=== PATIENT | male | born 1940 | race Caucasian/White ===

== ENCOUNTER 2023-04-03 07:44 | Inpatient (IN) | payer MEDICARE, BC, SELFPAY ==
--- NOTE | 2023-04-03 07:45 | RT.EKG_ITS ---
APPROVED REPORT Exam: Resting ECG Reason for Exam: CHEST PAIN Patient Location: E HR:80 bpm ECG Measurements Heart Rate 80 AXIS IN 160 P 43 QRSd 86 QRS 53 QT 343 T 137 QTc 396 Conclusion Sinus rhythm...normal P axis, V-rate 60- 99 Probable left atrial enlargement...P >50mS, <-0.10mV V1 Abnrm T, consider ischemia, anterolateral lds...T <-0.20mV, I aVL V2-V6 T wave inversions I, L, V3-V6 no previous avai
[2023-04-03 07:48] VITALS: BP 126/53; PULSE 80; RESP 17; TEMP 36.8; O2SAT 96
[2023-04-03 07:58] VITALS: RESP 17
--- NOTE | 2023-04-03 08:18 | DI.CT_ITS ---
Exam(s) CT THORAX ABD/PEL CTA EXAM: CT THORAX ABD/PEL CTA CLINICAL HISTORY: rule out dissection/ AAA. TECHNIQUE: Imaging Protocol: Axial CT angiography was performed with multi-slice acquisition and mu lti-planar and/or 3D reconstructions. CONTRAST MATERIAL: Intravenous: Omnipaque 350 Contrast volume:125 ml COMPARISON: No exams were available for comparison FINDINGS: CHEST: Pulmonary Arteries: No evidence of filling defect to suggest pulmonary emboli. Tracheobronchial tree: Patent where visualized. Mediastinum and Kaylyn: No dominant adenopathy or fluid collection. Pulmonary parenchyma: No consolidation or dominant measurable mass. Pleura: No effusion or pneumothorax. Heart: Mildly enlarged. Status post CABG. Coronary artery calcifications. Aorta: Thoracic aorta non-dilated. Minimal calcifications. Bones: Sternal wires. Tubes, Catheters, and Lines: ABDOMEN: Liver: Normal density. No measurable mass. Portal, Superior Mesenteric, and Splenic Veins: Unremarkable. Gallbladder and Biliary Tract: Status post cholecystectomy. Distal common bile duct stent extending into duodenum. No biliary dilatation. Pancreas: Normal density, no abnormal calcifications or inflammatory process. Spleen: Normal. Adrenals: No masses seen. Kidneys: Normal size, contour and axis. No radiodense stones or obstructive uropathy. No masses seen. Abdominal Aorta and branch vessels: Abdominal aorta non-dilated. Minimal atherosclerotic changes. N o significant stenosis involving the celiac axis, SMA, BRITTNEY or renal arteries. Iliac and femoral cindy luca show scattered plaque but no significant stenosis or aneurysm. Bowel: Large quantity of stool. Mild diverticulosis. No obstruction or bowel wall thickening. Appen allen is unremarkable. Peritoneal Cavity: No ascites, collection or mesenteric inflammatory response. Lymph Nodes: Within normal limits. Bones: Unremarkable. Soft Tissues: Unremarkable. PELVIS: Bladder: Symmetric distention, no gross wall thickening. Reproductive Organs: Unremarkable as visualized. Lymph Nodes: Within normal limits. Bones: Within normal limits. IMPRESSION: 1. No evidence of pulmonary embolism. No evidence of aortic aneurysm or dissection. Atherosclerotic changes in the aorta and branch vessels without evidence of significant stenosis or aneurysm. 2. No acute abdominal or pelvic process. RADIATION DOSE DELIVERED: 1,064.65mGy.cm Total DLP DATA REPOSITORY: All CT scans at this facility are submitted to the National Radiology Data Registry (NRDR) Dose Index Registry (DIR) with the [employer] (A[employer]). RADIATION OPTIMIZATION: All CT scans at this facility use at least one of these dose optimization te chniques: automated exposure control; mA and/or kV adjustment per patient size (includes targeted exa ms where dose is matched to clinical indication); or iterative reconstruction.
--- NOTE | 2023-04-03 08:25 | W.ED.GENAD ---
Discharge Plan Disposition Patient Disposition: Admit to [facility] Discharge Details Chief Complaint: Chest Pain Clinical Impression: Hepatitis, Post-operative complication, Abnormal ECG Primary Care Provider: Anh,Local ED Provider: Becca Barajas Home Meds and New Rx's Prescriptions: No Action melatonin 10 mg capsule 10 mg PO HS PRN methylprednisolone 4 mg tablets,dose pack 4 mg PO DAILY Qty: 21 0RF permethrin 5 % cream 1 applic topical Q14D Qty: 60 0RF Rx Instructions: apply second treatment 14 days after first treatment if live lice remain atorvastatin [Lipitor] 80 MG tablet 80 mg PO QPM aspirin [Aspir-81] 81 MG tablet,delayed release (DR/EC) 81 mg PO QAM tamsulosin 0.4 MG capsule 0.4 mg PO HS lisinopril 5 MG tablet 5 mg PO QAM Discharge Data Discharge Date/Time-TO BE ENTERED AT DEPARTURE: 04/03/23 13:42 Discharge Physician: Becca Barajas Medical Decision Making This is a 82-year-old male with a history of coronary artery disease and 5 vessel bypass who had a clean cardiac cath 3 years ago in [place] prior to an orthopedic procedure on his shoulder. He presents today with epigastric pain rating to the back. I am concerned about a AAA and/or dissection. Other considerations are pancreatitis, diverticulitis, peptic ulcer disease, gastritis, colitis although he has not had any diarrhea or vomiting. I do not hear a bruit and there were no embolic lesions in the abdomen but we will obtain a CT of the chest abdomen and pelvis. I will write for IV fluids. He is not currently experiencing pain and we will address that if his pain returns. He is currently hemodynamically stable. We will also check blood work and send a type and screen. I have already reviewed his EKG and he has some T wave inversions which are likely old but we do not have an old one for comparison Lab Data Lab results reviewed: Yes I reviewed the patient's lab results. ECG Data Attestation: I personally reviewed and interpreted this ECG (s) as follows: Prior ECG tracings: available for review Interpretation: This patient has diffuse T wave inversions but no ST elevation. We have no previous available for comparison HPI General Date/Time Provider Initiated Documentation: 04/03/23 07:59. Information obtained by: patient and family (). HPI Narrative: Time seen was 8 AM in bed 1. The patient is a 82-year-old male who resides in [place] and is visiting his daughter who is a pharmacist here at [facility]. He has a history of bypass grafting x5 in 1998. 3 years ago prior to shoulder surgery he had a cardiac catheterization in [place] which his tells me demonstrated clean coronary arteries. He presents today with abdominal pain which radiates to his back which was severe in intensity and lasted hours. He states that the pain began in the epigastric region and radiated around his abdomen and directly to his back. It began last night after dinner. He stated that drinking milk helps slightly, but he did vomit this morning. He probably vomited his lisinopril. Currently he is pain-free. He states the pain is similar to his previous anginal equivalent prior to his bypass in 1998. He did not take any medications for his pain other than a gram of acetaminophen. He tells me that he is currently pain-free and denies any other aggravating or alleviating factors. He denies any blood in the stool. He denies heavy alcohol use. He denies any history of pancreatitis. He denies any diarrhea or sick contacts. He also complained of feeling chills but his states she took his temperature and he was afebrile. Related Data Home Medications Medication Instructions Recorded Confirmed aspirin 81 mg tablet,delayed 81 mg PO QAM 04/30/13 04/03/23 release (Aspir-) atorvastatin 80 mg tablet (Lipitor) 80 mg PO QPM 04/30/13 04/03/23 lisinopril 5 mg tablet 5 mg PO QAM 04/30/13 04/03/23 tamsulosin 0.4 mg capsule 0.4 mg PO HS 04/30/13 04/03/23 melatonin 10 mg capsule 10 mg PO HS PRN 03/25/23 04/03/23 methylprednisolone 4 mg tablets in 4 mg PO DAILY #21 dose pk 03/25/23 04/03/23 a dose pack permethrin 5 % topical cream 1 applic topical Q14D 2 doses #60 04/02/23 04/03/23 grams Previous Rx's Medication Instructions Recorded methylprednisolone 4 mg tablets in 4 mg PO DAILY #21 dose pk 03/25/23 a dose pack permethrin 5 % topical cream 1 applic topical Q14D 2 doses #60 04/02/23 grams Allergies Allergy/AdvReac Type Severity Reaction Status Date / Time No Known Allergies Allergy Unverified 04/02/23 12:00 General Stated Complaint: Chest Pain MORENA: 3 Review of Systems Constitutional Constitutional: Reports as per HPI and Denies fever(s) Comments: No dizziness Eyes Eyes: Reports as per HPI ENT Ears, Nose, Mouth, and Throat: Denies dysphagia Gastrointestinal Gastrointestinal: Reports as per HPI, Reports abdominal pain, Denies melena, Denies hematochezia, Denies coffee ground emesis and Denies dysphagia PFS All Active Problems (Updated 04/03/23 @ 13:42 by Becca Barajas MD) Hepatitis (Acute) Post-operative complication (Acute) Abnormal ECG (Acute) Social History Smoking/Tobacco Use Status: Never Smoking risk assessment performed?: Yes Alcohol Intake: current Alcohol Intake frequency: holidays/special occasions only Drug use: Never Exam Const General: cooperative, healthy appearing, comfortable, no acute distress, well developed, well groomed and well hydrated Nutritional Appearance: average body habitus and well nourished Orientation: alert, awake and oriented x3 HENMT Head: normal to inspection, normocephalic and atraumatic Ears: hearing grossly normal bilaterally and external ears normal General nose exam: external nose normal and no nasal discharge Face and sinus: normal facial exam Mouth: moist mucous membranes and other (Normal phonation) Eyes General: appearance normal, both eyes and all related structures Conjunctivae: other (Conjunctiva are slightly pale) Pupils: PERRL EOM: EOM intact bilaterally Other: The patient has had bilateral lens implants Neck Neck: normal visual inspection, full ROM, no meningeal signs and trachea midline Carotids: normal carotid upstroke and no bruits Chest Other: The patient has a well-healed sternotomy scar. No chest wall tenderness. Symmetric expansion Resp Effort & Inspection: normal respiratory effort and able to speak in complete sentences Auscultation: clear to auscultation bilaterally and abnormal I/E ratio Cardio Jugular venous pressure: no JVD Rate: regular rate Rhythm: regular rhythm Heart Sounds: S1 normal and S2 normal Bruits: no abdominal aortic bruits and no carotid bruits Pulses: dorsalis pedis present Other: No embolic lesions GI Inspection: normal to inspection and non-distended Palpation: soft, no hepatosplenomegaly, no aortic enlargement, no hepatosplenomegaly and nontender Auscultation: normal bowel sounds Back/Spine/Pelvis Back: no CVA tenderness Cervical Spine: normal cervical lordosis Thoracic/Lumbar Spine: thoracic and lumbar spine normal to inspection Skin General skin exam: no rashes or lesions noted, turgor normal, no petechiae and no purpura Rashes: no rashes Trauma: no lacerations or abrasions Neuro General: patient alert, patient awake, patient oriented x3, no meningeal signs, no focal motor deficits and CN's II-XI intact bilaterally Cranial Nerves: CN's II-XI intact bilaterally Cognition: normal cognition Speech: speech normal Gait: normal gait Motor: muscle tone normal throughout Sensory Exam: no sensory deficits noted Extrem General: full ROM, capillary refill normal and normal exam except as noted Other: The patient has a surgical scar of the right ankle and well-healed surgical scar from a saphenous vein graft. No cyanosis. Mild peripheral edema no Homans or cords Psych Appearance: grossly normal Affect: normal affect Attitude: cooperative Insight: insight good Judgment: judgment good Other: The patient appears to have capacity make medical decisions. Course The patient has inverted T waves on his EKG and no previous available for comparison. He has had previous EKGs in [place]. His is attempting to recall the name of the hospital where he has been admitted previously so we may obtain previous EKG for comparison. Reevaluation(s) Time: 08:00 Time: 08:41 Reevaluation #2: The patient states that he has also been [place]. He states this is a new complaint. Time: 11:28 Additional Reevaluation(s): I have reviewed the CT findings and the patient has a biliary stent in the distal portion of the common bile duct with most of the stent in the duodenum. The patient states he was not aware of his stent but did have a cholecystectomy 6 years ago in [place]. I will consult general surgery. Patient feels improved and is asking to eat. Consultations Consultation #1: Dr. Tirado general surgery General surgery Consultation #2: Dr. Moura ([facility] [place]) he recommended that the patient be admitted and started on antibiotics if he developed a leukocytosis or fever. They will attempt to arrange for ERCP on Wednesday the or Wednesday the . Time: 12:50 Consultation #3: Hospitalist Additional Consultation(s): Agrees to admit Vital Signs Vital signs: Vital Signs Temperature 36.8 C 04/03/23 07:48 Pulse 80 04/03/23 07:48 Respiratory Rate 17 04/03/23 07:48 Blood Pressure 126/53 L 04/03/23 07:48 Pulse Oximetry 96 04/03/23 07:48 Temperature 36.8 C 04/03/23 07:48 Temperature Source Oral 04/03/23 07:48 Pulse 80 04/03/23 07:48 Respiratory Rate 17 04/03/23 07:58 Respiratory Effort Normal, Non-Labored 04/03/23 07:58 Respiratory Depth Normal 04/03/23 07:58 Respiratory Pattern Normal 04/03/23 07:58 Blood Pressure 126/53 L 04/03/23 07:48 Blood Pressure Position Supine 04/03/23 07:48 Pulse Oximetry 96 04/03/23 07:48 Oxygen Delivery Method Room Air 04/03/23 07:48 Oxygen Flow Rate 0 04/03/23 07:48 Critical Care Time Critical Care Time Critical Care Time: Yes Total Critical Care Time: 36
[2023-04-03 08:33] LABS: Abs Immature Grans 0.03 10^3/uL (0.0-0.06); Absolute Basophil Count 0.03 10^3/uL (0.0-0.2); Absolute Eosinophil Count 0.01 10^3/uL (0.0-0.7); Absolute Lymphocyte Count 0.15 10^3/uL (1.2-3.4); Absolute Monocyte Count 0.49 10^3/uL (0.1-0.8); Absolute Neutrophil Count 7.79 10^3/uL (1.2-6.7); Basophils % 0.4; Eosinophils % 0.1; HCT 42.3 % (40.0-50.0); HGB 14.1 g/dL (13.5-17.5); Immature Grans % 0.4; Lymphocytes % 1.8; MCH 33.7 pg (27.0-33.0); MCHC 33.3 % (32.0-36.0); MCV 101 fL (80-95); MPV 12.2 fL (8.0-11.0); Monocytes % 5.8; Neutrophils % 91.5; Platelet Count 102 10^3/uL (130-400); RBC 4.19 10^6/uL (4.36-5.78); RDW 11.9 % (11.8-14.1); RDW-SD 44.5 fL
[2023-04-03 08:56] LABS: ALT 538 U/L (16-63); AST 790 U/L (15-37); Albumin 3.2 g/dL (3.4-5.0); Alkaline Phosphatase 271 U/L (46-116); Anion Gap 10.4 mmol/L (3-11); BUN 17 mg/dL (7-18); Bilirubin, Total 4.2 mg/dL (0.2-1.0); CO2 24.6 mmol/L (21.0-32.0); CREATININE 1.4 mg/dL (0.70-1.30); Chloride 104 mmol/L (98-107); Estimated GFR 49.87 (mL/min/1.73m2); Glucose 177 mg/dL (74-106); Lipase 16 U/L (16-77); Magnesium 1.8 mg/dL (1.8-2.4); NT-proBNP 481 pg/mL (<300); Potassium 4.2 mmol/L (3.5-5.1); Sodium 139 mmol/L (136-145); Total Protein 6.8 g/dL (6.4-8.2); Troponin I < 50 ng/L (<or=60)
[2023-04-03] MEDS: Aspirin 81 MG CHEW 324 MG CH (09:01)
[2023-04-03 09:04] LABS: INR 1.1 (0.9-1.1); PTT Activated 21.2 sec (21.5-31.9); Prothrombin Time 11.5 sec (9.3-11.0)
[2023-04-03] MEDS: Normal Saline - Diluent 50 ML VIAL IJ (10:05)
[2023-04-03] MEDS: Omnipaque 350 MG/ML 100 ML BTL IJ (10:05)
--- NOTE | 2023-04-03 10:40 | DI.VRAD_ITS ---
PROCEDURE INFORMATION: Exam: CTA Chest With Contrast CTA Abdomen and Pelvis With Contrast Exam date and time: 04/03/2023 9:55 AM Age: 82 years old Clinical indication: Other: Midline abdomen pain; Abdominal pain; Acute TECHNIQUE: Imaging protocol: Computed tomographic angiography of the chest with contrast. Exam focused on the arteries. Computed tomographic angiography of the abdomen and pelvis with contrast. Exam focused on the arteries. 3D rendering (Not supervised by radiologist): MIP and/or 3D reconstructed images were created by the technologist. COMPARISON: No relevant prior studies available. FINDINGS: VASCULATURE: Pulmonary arteries: Normal. No pulmonary emboli. Aorta: No aortic aneurysm. No aortic dissection. Celiac trunk and mesenteric arteries: No occlusion or significant stenosis. Renal arteries: No occlusion or significant stenosis. Right iliac arteries: No occlusion or significant stenosis. Left iliac arteries: No occlusion or significant stenosis. CHEST: Lungs: Unremarkable. No consolidation. No masses. Pleural spaces: Unremarkable. No pneumothorax. No pleural effusion. Heart: The heart is borderline enlarged and has a biventricular configuration. There are coronary artery calcifications. There is a sternotomy for coronary artery bypass graft surgery. There is no pericardial effusion. ABDOMEN AND PELVIS: Liver: No mass. Gallbladder and bile ducts: The gallbladder has been removed No ductal dilation. There is a biliary stent in the distal portion of the common bile duct with most of the stent in the duodenum. Pancreas: Unremarkable. No mass. No ductal dilation. Spleen: Unremarkable. No splenomegaly. Adrenal glands: Unremarkable. No mass. Kidneys and ureters: Unremarkable. No solid mass. No hydronephrosis. Stomach and bowel: Unremarkable. No obstruction. No mucosal thickening. Appendix: No evidence of appendicitis. Intraperitoneal space: Unremarkable. No free air. No significant fluid collection. Urinary bladder: Unremarkable. No mass. Reproductive: Unremarkable as visualized. Lymph nodes: Unremarkable. No enlarged lymph nodes. Bones/joints: The osseous structures are unremarkable. Soft tissues: Unremarkable. Other findings: Peripheral vascular has a small amount of plaque without stenosis. IMPRESSION: 1. The peripheral vasculature has a small amount of plaque but no evidence of stenosis or occlusion. Evidence of coronary artery bypass graft surgery. 2. Biliary stent in the distal portion of the common bile most of the stent in the duodenum. Dictated and Authenticated by: Vinay Yeung MD. Ordering:VANE Hudson MD
[2023-04-03] MEDS: Lactated Ringers 1,000 ML 150 ML IV ×2 (11:43→17:33)
[2023-04-03 11:48] LABS: Troponin I < 50 ng/L (<or=60)
[2023-04-03 15:14] VITALS: BP 118/54; PULSE 67; RESP 16; TEMP 37; O2SAT 98
[2023-04-03 15:14] LABS: Troponin I < 50 ng/L (<or=60)
[2023-04-03] MEDS: Heparin 5,000 UNITS/ML VIAL 5000 UNITS SC (15:55)
--- NOTE | 2023-04-03 16:59 | HPE_ITS ---
Date of service: 04/03/23 Time of Service: 16:59 Assessment and Plan Assessment and plan (1) Displacement of biliary stent: Status: Acute Assessment and plan: CBD stented appx 5 years ago d/t retained stone. Now dislodged. Will attempt to find GI that would accept for either a down and back for removal of the stent or transfer. Now w/o pain. PRN dilaudid if needed. (2) Coronary artery disease: Status: Chronic Assessment and plan: Troponin negative. T-wave inversions noted but likely are not new. Cont ASA and atorvastatin. Not on a BB. (3) Discharge planning issues: Status: Acute Assessment and plan: Will begin process of finding GI for ERCP and stent removal. History of Present Illness History of Present Illness Chief Complaint: Abd pain Narrative: This is an 82 yo male with a PMH of gallstone pancreatitis with a retained stone; s/p CBD stent, CAD s/p CABG grafting x5 in 1998. He is currently in [place] with his staying with his daughter for the summer. He presented with abd pain radiating into the back that began the evening before presentation after eating. The pain was epigastric and lasted for several hours. + emesis the m orning of admission. He presented pain-free. The pain was similar to that he experienced prior to his bypass surgery. He took 1 gram acetaminophen for the abd pain. He endorsed having experienced chills. No diarrhea, fever. In the ED he was afebrile with a normal WBC count and hgb. Normal magnolia ctrolytes. Creatinine of 1.4. Glucose 177. Troponin negative x3. CT C/A/P: Biliary stent in the distal portion of the common bile duct; most of the stent in the duodenum. Review of Systems All systems reviewed & are unremarkable except as noted in HPI and below PFSH All Active Problems (Updated 04/03/23 @ 17:28 by Dylan Anderson MD) Discharge planning issues (Acute) Coronary artery disease (Chronic) Displacement of biliary stent (Acute) Hepatitis (Acute) Post-operative complication (Acute) Abnormal ECG (Acute) Social History Smoking/Tobacco Use Status: Never Smoking risk assessment performed?: Yes Alcohol Intake: current Alcohol Intake frequency: holidays/special occasions only Drug use: Never Housing: house Meds Allergies and Home Medications Allergies Allergy/AdvReac Type Severity Reaction Status Date / Time No Known Allergies Allergy Unverified 04/02/23 12:00 Home Medications Medication Instructions Recorded Confirmed Type aspirin 81 mg tablet,delayed 81 mg PO QAM 04/30/13 04/03/23 History release (Aspir-) atorvastatin 80 mg tablet (Lipitor) 80 mg PO QPM 04/30/13 04/03/23 History lisinopril 5 mg tablet 5 mg PO QAM 04/30/13 04/03/23 History tamsulosin 0.4 mg capsule 0.4 mg PO HS 04/30/13 04/03/23 History melatonin 10 mg capsule 10 mg PO HS PRN 03/25/23 04/03/23 History methylprednisolone 4 mg tablets in 4 mg PO DAILY #21 dose pk 03/25/23 04/03/23 Rx a dose pack permethrin 5 % topical cream 1 applic topical Q14D 2 doses #60 04/02/23 04/03/23 Rx grams Exam Const General: cooperative, healthy appearing, no acute distress, well groomed and well hydrated Nutritional Appearance: average body habitus and well nourished Orientation: alert, awake and oriented x3 HENMT Head: normal to inspection and normocephalic Ears: hearing grossly normal bilaterally and external ears normal Face and sinus: normal facial exam Mouth: moist mucous membranes Eyes General: appearance normal, both eyes and all related structures Sclera: sclerae normal Other: The patient has had bilateral lens implants Neck Neck: normal visual inspection and full ROM Chest Other: The patient has a well-healed sternotomy scar. No chest wall tenderness. Symmetric expansion Resp Effort & Inspection: normal respiratory effort and able to speak in complete sentences Cardio Jugular venous pressure: no JVD Rate: regular rate Rhythm: regular rhythm Heart Sounds: S1 normal and S2 normal Other: No embolic lesions GI Inspection: normal to inspection Palpation: soft and nontender Auscultation: normal bowel sounds Skin General skin exam: no rashes or lesions noted Neuro General: patient alert, patient awake, patient oriented x3 and no focal motor deficits Cranial Nerves: facial strength normal Cognition: normal cognition Speech: speech normal Gait: normal gait Motor: muscle tone normal throughout Extrem General: no pedal edema and no calf tenderness Other: The patient has a surgical scar of the right ankle and well-healed surgical scar from a saphenous vein graft. No cyanosis. Mild peripheral edema no Homans or cords Psych Appearance: grossly normal Affect: normal affect Attitude: cooperative Insight: insight good Judgment: judgment good Other: The patient appears to have capacity make medical decisions. Results Labs 04/03/23 08:25 04/03/23 08:25 Labs: Laboratory Results - last 24 hr 04/03/23 04/03/23 04/03/23 08:25 08:25 08:25 WBC 8.50 RBC 4.19 L Hgb 14.1 Hct 42.3 MCV 101 H MCH 33.7 H MCHC 33.3 RDW 11.9 Plt Count 102 L MPV 12.2 H Immature Gran % 0.4 Neutrophils % 91.5 Lymphocytes % 1.8 Monocytes % 5.8 Eosinophils % 0.1 Basophils % 0.4 Nucleated RBC % 0.0 Absolute Neutrophils 7.79 H Absolute Lymphocytes 0.15 L Absolute Monocytes 0.49 Absolute Eosinophils 0.01 Absolute Basophils 0.03 PT Cancelled INR Cancelled APTT Cancelled Sodium 139 Potassium 4.2 Chloride 104 Carbon Dioxide 24.6 Anion Gap 10.4 BUN 17 Creatinine 1.4 H Est GFR (CKD-EPI 2020) 49.87 Glucose 177 H Calcium 9.0 Magnesium 1.8 Total Bilirubin 4.2 H AST 790 H ALT 538 H Alkaline Phosphatase 271 H Troponin I < 50 NT-Pro-B Natriuret Pep 481 H Total Protein 6.8 Albumin 3.2 L Lipase 16 Patient ABO/Rh Antibody Screen 04/03/23 04/03/23 04/03/23 08:40 08:40 11:16 WBC RBC Hgb Hct MCV MCH MCHC RDW Plt Count MPV Immature Gran % Neutrophils % Lymphocytes % Monocytes % Eosinophils % Basophils % Nucleated RBC % Absolute Neutrophils Absolute Lymphocytes Absolute Monocytes Absolute Eosinophils Absolute Basophils PT 11.5 H INR 1.1 APTT 21.2 L Sodium Potassium Chloride Carbon Dioxide Anion Gap BUN Creatinine Est GFR (CKD-EPI 2020) Glucose Calcium Magnesium Total Bilirubin AST ALT Alkaline Phosphatase Troponin I < 50 NT-Pro-B Natriuret Pep Total Protein Albumin Lipase Patient ABO/Rh O Positive Antibody Screen NEGATIVE 04/03/23 14:49 WBC RBC Hgb Hct MCV MCH MCHC RDW Plt Count MPV Immature Gran % Neutrophils % Lymphocytes % Monocytes % Eosinophils % Basophils % Nucleated RBC % Absolute Neutrophils Absolute Lymphocytes Absolute Monocytes Absolute Eosinophils Absolute Basophils PT INR APTT Sodium Potassium Chloride Carbon Dioxide Anion Gap BUN Creatinine Est GFR (CKD-EPI 2020) Glucose Calcium Magnesium Total Bilirubin AST ALT Alkaline Phosphatase Troponin I < 50 NT-Pro-B Natriuret Pep Total Protein Albumin Lipase Patient ABO/Rh Antibody Screen Last Vital Signs Temp 37 C 04/03/23 15:14 Pulse 67 04/03/23 15:14 Resp 16 04/03/23 15:14 BP 118/54 L 04/03/23 15:14 Pulse Ox 98 04/03/23 15:14 Time Spent Time spent with Patient: 40-54 minutes Time was spent: preparing to see the patient(eg.review tests), obtaining and/or reviewing separately otained hiistory, ordering medications,tests, procedures, referring, communicating with other health acute care occupational therapist, indepentently interpreting results, counseling the patient and care coordination
[2023-04-03] MEDS: Atorvastatin 40 MG TAB PO (20:33)
[2023-04-03] MEDS: Melatonin 3 MG TAB 9 MG PO (20:33)
--- NOTE | 2023-04-03 21:27 | W.PM.DS.N ---
Date of service: 04/03/23 Time of Service: 21:31 DS: Diagnosis Discharge Diagnosis (1) Displacement of biliary stent: Start date: 04/03/23 Status: Acute Asessment and Plan: Patient had abdominal pain prior to admission with no pain since admission and at transfer no pain medication will be ordered during transfer with basic crew for ambulance transfer to [place], [place]. (2) Coronary artery disease: Status: Chronic Asessment and Plan: Asymptomatic the patient continues on maintenance medications status post CABG x5 remotelyin 1998 and more recent catheterization which revealed normal coronary ateries. Patient is on high-dose statin which will be continued. (3) Discharge planning issues: Status: Acute Asessment and Plan: Patient is being transferred to [facility] for removal of common bile duct stent which is partially dislodged. He is stable. Discharge Plan Disposition Specific Acute Inpt Facility: [place] Condition: Fair Discharge Details Reason For Visit: Biliary Obstruction Admit Date/Time: 04/03/23 13:31 Admit Provider: Dylan Adnerson Attending Provider: Dylan Anderson Primary Care Provider: [facility] Hospital Course Hospital Course: This is an 82-year-old gentleman who was admitted with abdominal pain which resolved requiring no pain management during his hospital stay now being transferred to [facility] for specialty care not available at this hospital. He does need his partially dislodged, bile duct stent removed and this will be accomplished in transfer and hospitalization. He will be transferred via basic crew with ambulance and he is a full code. His hospital course was uncomplicated. Home Meds and New Rx's Prescriptions: No Action melatonin 10 mg capsule 10 mg PO HS PRN methylprednisolone 4 mg tablets,dose pack 4 mg PO DAILY Qty: 21 0RF permethrin 5 % cream 1 applic topical Q14D Qty: 60 0RF Rx Instructions: apply second treatment 14 days after first treatment if live lice remain atorvastatin [Lipitor] 80 MG tablet 80 mg PO QPM aspirin [Aspir-81] 81 MG tablet,delayed release (DR/EC) 81 mg PO QAM tamsulosin 0.4 MG capsule 0.4 mg PO HS lisinopril 5 MG tablet 5 mg PO QAM Discharge Instructions Diet:: Heart healthy Discharge Data Discharge Physician: Becca Barajas DS: Summary Time Spent with Patient providing and/or coordinating discharge services: Greater than 30 minutes Status at Discharge Functional status at discharge: bed bound Overall status at discharge: patient is back to baseline Mental Status: mental status grossly normal Speech and Movement: speech and movement normal Mood: congruent mood Affect: normal affect Exam Narrative Exam Narrative: See physical exam on H&P note for 04/03/2023 without change. Const General: cooperative, healthy appearing, no acute distress, well groomed and well hydrated Nutritional Appearance: average body habitus and well nourished Orientation: alert, awake and oriented x3 HENMT Head: normal to inspection and normocephalic Ears: hearing grossly normal bilaterally and external ears normal Face and sinus: normal facial exam Mouth: moist mucous membranes Eyes General: appearance normal, both eyes and all related structures Sclera: sclerae normal Other: The patient has had bilateral lens implants Neck Neck: normal visual inspection and full ROM Chest Other: The patient has a well-healed sternotomy scar.? No chest wall tenderness.? Symmetric expansion Resp Effort & Inspection: normal respiratory effort and able to speak in complete sentences Cardio Jugular venous pressure: no JVD Rate: regular rate Rhythm: regular rhythm Heart Sounds: S1 normal and S2 normal Other: No embolic lesions GI Inspection: normal to inspection Palpation: soft and nontender Auscultation: normal bowel sounds Skin General skin exam: no rashes or lesions noted Neuro General: patient alert, patient awake, patient oriented x3 and no focal motor deficits Cranial Nerves: facial strength normal Cognition: normal cognition Speech: speech normal Gait: normal gait Motor: muscle tone normal throughout Extrem General: no pedal edema and no calf tenderness Other: The patient has a surgical scar of the right ankle and well-healed surgical scar from a saphenous vein graft.? No cyanosis.? Mild peripheral edema no Homans or cords Psych Appearance: grossly normal Affect: normal affect Attitude: cooperative Insight: insight good Judgment: judgment good Other: The patient appears to have capacity make medical decisions. Psych Mental Status: mental status grossly normal Speech and Movement: speech and movement normal Mood: congruent mood Affect: normal affect DS: Data Vitals/I&O Vitals and I&O: Vital Signs Temperature 37 C 04/03/23 15:14 Temperature Source Oral 04/03/23 07:48 Pulse 67 04/03/23 15:14 Pulse Rhythm Regular 04/03/23 15:14 Respiratory Rate 16 04/03/23 15:14 Respiratory Effort Normal, Non-Labored 04/03/23 15:14 Respiratory Depth Normal 04/03/23 15:14 Respiratory Pattern Normal 04/03/23 15:14 Blood Pressure 118/54 L 04/03/23 15:14 Blood Pressure Position Supine 04/03/23 07:48 Pulse Oximetry 98 04/03/23 15:14 Oxygen Delivery Method Room Air 04/03/23 15:14 Oxygen Flow Rate 0 04/03/23 15:14 Pain Level 0 04/03/23 15:14 Intake & Output 04/02/23 04/03/23 04/03/23 23:59 11:59 23:59 Intake Total 1105 / 1105 Balance 1105 / 1105 Weight 81.647 kg 81.647 kg Intake: IV 1105 / 1105 Data Completed and Pending Completed studies during hospitalization [Text1]: CTA Chest With Contrast CTA Abdomen and Pelvis With Contrast Exam date and time: 04/03/2023 9:55 AM Age: 82 years old Clinical indication: Other: Midline abdomen pain; Abdominal pain; Acute TECHNIQUE: Imaging protocol: Computed tomographic angiography of the chest with contrast. Exam focused on the arteries. Computed tomographic angiography of the abdomen and pelvis with contrast. Exam focused on the arteries. 3D rendering (Not supervised by radiologist): MIP and/or 3D reconstructed images were created by the technologist. COMPARISON: No relevant prior studies available. FINDINGS: VASCULATURE: Pulmonary arteries: Normal. No pulmonary emboli. Aorta: No aortic aneurysm. No aortic dissection. Celiac trunk and mesenteric arteries: No occlusion or significant stenosis. Renal arteries: No occlusion or significant stenosis. Right iliac arteries: No occlusion or significant stenosis. Left iliac arteries: No occlusion or significant stenosis. CHEST: Lungs: Unremarkable. No consolidation. No masses. Pleural spaces: Unremarkable. No pneumothorax. No pleural effusion. Heart: The heart is borderline enlarged and has a biventricular configuration. There are coronary artery calcifications. There is a sternotomy for coronary artery bypass graft surgery. There is no pericardial effusion. ABDOMEN AND PELVIS: Liver: No mass. Gallbladder and bile ducts: The gallbladder has been removed No ductal dilation. There is a biliary stent in the distal portion of the common bile duct with most of the stent in the duodenum. Pancreas: Unremarkable. No mass. No ductal dilation. Spleen: Unremarkable. No splenomegaly. Adrenal glands: Unremarkable. No mass. Kidneys and ureters: Unremarkable. No solid mass. No hydronephrosis. Stomach and bowel: Unremarkable. No obstruction. No mucosal thickening. Appendix: No evidence of appendicitis. Intraperitoneal space: Unremarkable. No free air. No significant fluid collection. Urinary bladder: Unremarkable. No mass. Reproductive: Unremarkable as visualized. Lymph nodes: Unremarkable. No enlarged lymph nodes. Bones/joints: The osseous structures are unremarkable. Soft tissues: Unremarkable. Other findings: Peripheral vascular has a small amount of plaque without stenosis.? IMPRESSION: 1. ? The peripheral vasculature has a small amount of plaque but no evidence of stenosis or occlusion. Evidence of coronary artery bypass graft surgery. 2. ? Biliary stent in the distal portion of the common bile most of the stent in the duodenum. Labs on day of discharge: Labs from last 24 hours 04/03/23 04/03/23 04/03/23 14:49 11:16 08:40 WBC RBC Hgb Hct MCV MCH MCHC RDW Plt Count MPV Immature Gran % Neutrophils % Lymphocytes % Monocytes % Eosinophils % Basophils % Nucleated RBC % Absolute Neutrophils Absolute Lymphocytes Absolute Monocytes Absolute Eosinophils Absolute Basophils PT INR APTT Sodium Potassium Chloride Carbon Dioxide Anion Gap BUN Creatinine Est GFR (CKD-EPI 2020) Glucose Calcium Magnesium Total Bilirubin AST ALT Alkaline Phosphatase Troponin I < 50 < 50 NT-Pro-B Natriuret Pep Total Protein Albumin Lipase Hepatitis A IgM Ab Hep Bs Antigen Hep B Core Total Ab Hepatitis C Antibody Patient ABO/Rh O Positive Antibody Screen NEGATIVE 04/03/23 04/03/23 04/03/23 08:40 08:25 08:25 WBC RBC Hgb Hct MCV MCH MCHC RDW Plt Count MPV Immature Gran % Neutrophils % Lymphocytes % Monocytes % Eosinophils % Basophils % Nucleated RBC % Absolute Neutrophils Absolute Lymphocytes Absolute Monocytes Absolute Eosinophils Absolute Basophils PT 11.5 H Cancelled INR 1.1 Cancelled APTT 21.2 L Cancelled Sodium Potassium Chloride Carbon Dioxide Anion Gap BUN Creatinine Est GFR (CKD-EPI 2020) Glucose Calcium Magnesium Total Bilirubin AST ALT Alkaline Phosphatase Troponin I NT-Pro-B Natriuret Pep Total Protein Albumin Lipase Hepatitis A IgM Ab Pending Hep Bs Antigen Pending Hep B Core Total Ab Pending Hepatitis C Antibody Pending Patient ABO/Rh Antibody Screen 04/03/23 04/03/23 08:25 08:25 WBC 8.50 RBC 4.19 L Hgb 14.1 Hct 42.3 MCV 101 H MCH 33.7 H MCHC 33.3 RDW 11.9 Plt Count 102 L MPV 12.2 H Immature Gran % 0.4 Neutrophils % 91.5 Lymphocytes % 1.8 Monocytes % 5.8 Eosinophils % 0.1 Basophils % 0.4 Nucleated RBC % 0.0 Absolute Neutrophils 7.79 H Absolute Lymphocytes 0.15 L Absolute Monocytes 0.49 Absolute Eosinophils 0.01 Absolute Basophils 0.03 PT INR APTT Sodium 139 Potassium 4.2 Chloride 104 Carbon Dioxide 24.6 Anion Gap 10.4 BUN 17 Creatinine 1.4 H Est GFR (CKD-EPI 2020) 49.87 Glucose 177 H Calcium 9.0 Magnesium 1.8 Total Bilirubin 4.2 H AST 790 H ALT 538 H Alkaline Phosphatase 271 H Troponin I < 50 NT-Pro-B Natriuret Pep 481 H Total Protein 6.8 Albumin 3.2 L Lipase 16 Hepatitis A IgM Ab Hep Bs Antigen Hep B Core Total Ab Hepatitis C Antibody Patient ABO/Rh Antibody Screen PFSH All Active Problems Discharge planning issues (Acute) Coronary artery disease (Chronic) Displacement of biliary stent (Acute) Hepatitis (Acute) Post-operative complication (Acute) Abnormal ECG (Acute) Social History Smoking/Tobacco Use Status: Never Smoking risk assessment performed?: Yes Alcohol Intake: current Alcohol Intake frequency: holidays/special occasions only Drug use: Never Housing: house Time Spent with Patient Time Spent with Patient: <45 minutes Time was spent: preparing to see the patient(eg.review tests), obtaining and/or reviewing separately otained hiistory, referring, communicating with other health managed care nurse and care coordination
[2023-04-03] MEDS: Tamsulosin 0.4 MG CAPCR PO (22:07)
[2023-04-03 22:19] VITALS: BP 115/62; PULSE 63; RESP 18; TEMP 37.5; O2SAT 95
[2023-04-05 12:39] LABS: Hepatitis A Antibody IgM Negative (Negative); Hepatitis B Core Antibody Negative (Negative); Hepatitis B surface Ag Negative (Negative); Hepatitis C Ab w Rflx HCV PCR Negative (Negative)
== END 2023-04-03 23:07 | disposition short-term general hospital (02) | DRG 919 ==
LOC: ER 13:41 → MS 15:03
PROVIDERS: Admitting Provider Family Medicine; Emergency Provider Emergency Medicine Emergency Medical Services; Visit Provider Family Medicine
DX: T85.520A Displacement of bile duct prosthesis, initial encounter (principal); K83.1 Obstruction of bile duct; B17.9 Acute viral hepatitis, unspecified; I25.10 Atherosclerotic heart disease of native coronary artery without angina pectoris; R93.41 Abnormal radiologic findings on diagnostic imaging of renal pelvis, ureter, or bladder; E80.6 Other disorders of bilirubin metabolism; Z95.1 Presence of aortocoronary bypass graft
CPT/HCPCS: 36415; 71275; 80053; 83690; 86704; 86709; 86803; 86850; 86900; 86901; 87340; 93005; 99285; 74174; 83735; 83880; 84484; 85025; 85610; 85730; 93010; 99235; J1644; J3490

== ENCOUNTER 2023-04-14 04:22 | Outpatient (CLI) | payer MEDICARE, BC, SELFPAY ==
[2023-04-14 11:14] LABS: ALT 49 U/L (16-63); AST 31 U/L (15-37); Albumin 3.3 g/dL (3.4-5.0); Alkaline Phosphatase 186 U/L (46-116); Anion Gap 9.1 mmol/L (3-11); BUN 22 mg/dL (7-18); Bilirubin, Total 0.6 mg/dL (0.2-1.0); CO2 26.9 mmol/L (21.0-32.0); CREATININE 1.1 mg/dL (0.70-1.30); Calcium 9.2 mg/dL (8.5-10.1); Chloride 105 mmol/L (98-107); Estimated GFR 66.61 (mL/min/1.73m2); Glucose 126 mg/dL (74-106); Potassium 4.4 mmol/L (3.5-5.1); Sodium 141 mmol/L (136-145); Total Protein 7.7 g/dL (6.4-8.2)
== END 2023-04-14 04:23 | disposition home or self-care (01) ==
LOC: LBO 04:22
PROVIDERS: Family Medicine; Visit Provider Student in an Organized Health Care Education/Training Program
DX: K80.50 Calculus of bile duct without cholangitis or cholecystitis without obstruction (principal)
CPT/HCPCS: 36415; 80048; 80053